=== PATIENT | male | born 1985 | race Caucasian/White ===

== ENCOUNTER 2017-09-02 15:55 | Emergency (ER) | payer MEDICAID ==
[~2017-09-02] VITALS: Ht 172.7 cm; Wt 91.0 kg
[2017-09-02] MEDS ORDERED: IBUPROFEN 600MG TABLET PO ONE (17:15)
[2017-09-02 17:58] VITALS: BP 126/75
== END 2017-09-02 18:00 | disposition home or self-care (01) ==
LOC: ER 15:55
DX: J02.9 Acute pharyngitis, unspecified (principal); H10.89 Other conjunctivitis
CPT/HCPCS: 87070; 87430; 99284; Z7610